=== PATIENT | male | born 1985 | race Two or more races ===

== ENCOUNTER 2019-01-02 22:18 | Emergency (ER) | payer BC, MEDICAID ==
[2019-01-03] MEDS ORDERED: LIDOCAINE 5% (700 MG) TRANSDERMAL ADH..PATCH TP ONE (01:19)
[2019-01-03] MEDS ORDERED: KETOROLAC TROMETHAMINE 60 MG/2 ML SDV IM ONE (01:19)
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
[2019-01-03 01:55] VITALS: BP 146/72
== END 2019-01-03 01:56 | disposition home or self-care (01) ==
LOC: ER 22:18
DX: M25.512 Pain in left shoulder (principal); G89.29 Other chronic pain; R25.2 Cramp and spasm
CPT/HCPCS: 99283; 96372; J1885

== ENCOUNTER 2019-02-26 12:20 | Emergency (ER) | payer SELFPAY ==
[2019-02-26] MEDS ORDERED: OXYCODONE-ACETAMINOPHEN 5-325 MG TABLET PO ONE (13:46)
--- NOTE | 2019-02-26 14:07 | RADIOLOGY REPORT (SQ) ---
EXAM DESCRIPTION: FOOT LEFT COMPLETE COMPLETED DATE/TIME: 02/26/2019 1:59 pm REASON FOR STUDY: fell yesterday, pain at calcaneous and up ankle COMPARISON: None. NUMBER OF VIEWS: Three views. TECHNIQUE: AP, lateral and oblique radiographic images acquired of the left foot. LIMITATIONS: None. FINDINGS: MINERALIZATION: Normal. BONES: No acute fracture or dislocation. No worrisome bone lesions. JOINTS: No effusions. SOFT TISSUES: No soft tissue swelling. No foreign body. OTHER: No other significant finding. IMPRESSION: NEGATIVE STUDY OF THE LEFT FOOT. NO RADIOGRAPHIC EVIDENCE OF ACUTE INJURY. TECHNICAL DOCUMENTATION: JOB ID: [id number] [employer]- All Rights Reserved Reading location - IP/workstation name: [email or web address]
--- NOTE | 2019-02-26 14:08 | RADIOLOGY REPORT (SQ) ---
EXAM DESCRIPTION: ANKLE LEFT COMPLETE COMPLETED DATE/TIME: 02/26/2019 1:59 pm REASON FOR STUDY: fell yesterday, pain at calcaneous and up ankle COMPARISON: None. NUMBER OF VIEWS: Three views. TECHNIQUE: AP, lateral, and oblique radiographic images acquired of the left ankle. LIMITATIONS: None. FINDINGS: MINERALIZATION: Normal. BONES: Several well corticated bone fragments overlie the distal fibula. This most likely is related to a old avulsion injury. There is no acute fracture or dislocation. JOINTS: No effusions. SOFT TISSUES: No soft tissue swelling. No foreign body. OTHER: No other significant finding. IMPRESSION: No acute findings. TECHNICAL DOCUMENTATION: JOB ID: [id number] [employer]- All Rights Reserved Reading location - IP/workstation name: [email or web address]
--- NOTE | 2019-02-26 15:16 | RADIOLOGY REPORT (SQ) ---
EXAM DESCRIPTION: OS CALCIS/HEEL LEFT COMPLETED DATE/TIME: 02/26/2019 3:04 pm REASON FOR STUDY: pain s/p fall COMPARISON: None. NUMBER OF VIEWS: Two views. TECHNIQUE: Plantar and lateral images acquired of the left calcaneous. LIMITATIONS: None. FINDINGS: MINERALIZATION: Normal. BONES: No acute fracture or dislocation. No worrisome bone lesions. JOINTS: No effusions. SOFT TISSUES: No soft tissue swelling. No foreign body. OTHER: No other significant finding. IMPRESSION: NEGATIVE STUDY OF THE LEFT CALCANEOUS. NO RADIOGRAPHIC EVIDENCE OF ACUTE INJURY. TECHNICAL DOCUMENTATION: JOB ID: [id number] [employer]- All Rights Reserved Reading location - IP/workstation name: [email or web address]
--- NOTE | 2019-02-26 15:55 | ER Document Report ---
HPI - HPI Time Seen by Provider: 02/26/19 13:19 Pain Level: 4 Notes: Patient is a 33-year-old male presenting with chief complaint of right foot pain and ankle pain. Patient reports that he was standing on a roof when his left leg fell through the roof however he did not fall through the roof. He states that his left leg did come down hard onto a wooden surface. Patient reports pain to the posterior calf over what he believes is the Achilles tendon. Patient is ambulatory on this extremity. - CONSTITUTIONAL Constitutional: DENIES: Fever, Chills - EENT EENT: DENIES: Sore Throat, Ear Pain, Eye problems - NEURO Neurology: DENIES: Headache, Weakness, Vision blurred, Dizzinesss / Vertigo - CARDIOVASCULAR Cardiovascular: DENIES: Chest pain - RESPIRATORY Respiratory: DENIES: Trouble Breathing, Coughing - GASTROINTESTINAL Gastrointestinal: DENIES: Abdominal Pain, Black / Bloody Stools - URINARY Urinary: DENIES: Dysuria, Urgency, Frequency - MUSCULOSKELETAL Musculoskeletal: REPORTS: Extremity pain - L foot/ankle Past Medical History - General Information source: Patient - Social History Smoking Status: Never Smoker Frequency of alcohol use: None Drug Abuse: None Family History: Reviewed & Not Pertinent Patient has suicidal ideation: No Patient has homicidal ideation: No - Medical History Medical History: Negative Renal/ Medical History: Denies: Hx Peritoneal Dialysis Surgical Hx: Negative - Immunizations Immunizations up to date: Yes Vertical Provider Document - CONSTITUTIONAL Notes: PHYSICAL EXAMINATION: GENERAL: Well-appearing, well-nourished and in no acute distress. HEAD: Atraumatic, normocephalic. EYES: Pupils equal round and reactive to light, extraocular movements intact, sclera anicteric, conjunctiva are normal. ENT: Nares patent, oropharynx clear without exudates. Moist mucous membranes. NECK: Normal range of motion, supple without lymphadenopathy LUNGS: Breath sounds clear to auscultation bilaterally and equal. No wheezes rales or rhonchi. HEART: Regular rate and rhythm without murmurs ABDOMEN: Soft, nontender, nondistended abdomen. No guarding, no rebound. No masses appreciated. Musculoskeletal: Normal range of motion, no pitting or edema. No cyanosis. negative asia test. Pain with flexion and extension of the foot. NEUROLOGICAL: Cranial nerves grossly intact. Normal speech, normal gait. Normal sensory, motor exams PSYCH: Normal mood, normal affect. SKIN: Warm, Dry, normal turgor, no rashes or lesions noted. - INFECTION CONTROL TRAVEL OUTSIDE OF THE [place] IN LAST 30 DAYS: No Course - Re-evaluation Re-evalutation: X-rays were obtained of the ankle, foot and calcaneus. These are all negative and show no acute fracture or dislocation. Attending physician, Dr. Holt did come to the bedside to evaluate the patient as well as I was concerned for a possible Achilles rupture or tear. Dr. Holt did the Simeon Ramos test which was negative. Patient will be placed in a short leg posterior splint to a position of comfort and referred to orthopedics as he does have significant pain to this area despite negative x-rays. Patient and family member at bedside and agreement with plan. - Vital Signs Vital signs: Temp Pulse Resp BP Pulse Ox 98.2 F 69 18 134/68 H 98 02/26/19 12:34 02/26/19 12:34 02/26/19 12:34 02/26/19 12:34 02/26/19 12:34 Procedures - Immobilization left leg Pre-Proc Neuro Vasc Exam: Normal Immobilizer type: Crutches, Short Leg Posterior Performed by: PCT Post-Proc Neuro Vasc Exam: Normal Alignment checked and good: Yes Discharge - Discharge Clinical Impression: Injury of ankle and foot Qualifiers: Encounter type: initial encounter Laterality: left Qualified Code(s): S99.912A - Unspecified injury of left ankle, initial encounter Condition: Stable Disposition: HOME, SELF-CARE Additional Instructions: The x-rays today were negative for any fracture or dislocation of the bones. This does not rule out any tendon or ligament injury. Please keep the splint in place until cleared by orthopedics. Please take ibuprofen 600 mg every 6 hours. Use the narcotic pain medication for severe pain only. Return to the emergency department with any new or worsening symptoms. Call orthopedics tomorrow to schedule follow-up. Prescriptions: Oxycodone HCl/Acetaminophen [Percocet 5-325 mg Tablet] 1 tab PO Q4H PRN #12 tablet PRN Reason: Referrals: ALLIE SEALS DO [ACTIVE STAFF] - Follow up as needed
[2019-02-26 16:05] VITALS: BP 118/67
== END 2019-02-26 16:09 | disposition home or self-care (01) ==
LOC: ER 12:20
DX: S99.912A Unspecified injury of left ankle, initial encounter (principal); M79.671 Pain in right foot; X58.XXXA Exposure to other specified factors, initial encounter
CPT/HCPCS: 99283

== ENCOUNTER 2019-11-26 23:18 | Emergency (ER) | payer SELFPAY ==
[2019-11-27 02:22] LABS: APPEARANCE,URINE SLIGHTLY-CLOUDY; BILIRUBIN,URINE NEGATIVE (NEGATIVE); COLOR,URINE AMBER; GLUCOSE, URINE NEGATIVE (NEGATIVE); KETONES,URINE TRACE mg/dL (NEGATIVE); LEUKOCYTE ESTERASE,URINE MODERATE (NEGATIVE); NITRITE,URINE NEGATIVE (NEGATIVE); PROTEIN,URINE 30 mg/dL (NEGATIVE); URINE SPECIFIC GRAVITY 1.035
[2019-11-27 02:25] LABS: A TYPE INFLUENZA AG NEGATIVE (NEGATIVE); B INFLUENZA AG NEGATIVE (NEGATIVE)
[2019-11-27] MEDS ORDERED: NORMAL SALINE 1000 ML 1,000 ML IV ONE (03:15)
[2019-11-27] MEDS ORDERED: KETOROLAC TROMETHAMINE INJ/PF 30 MG/1 ML SDV IV ONE (03:15)
[2019-11-27] MEDS ORDERED: ACETAMINOPHEN 325 MG TABLET PO ONE (03:15)
--- NOTE | 2019-11-27 03:28 | ER Document Report ---
ED General - General Chief Complaint: FEVERS Stated Complaint: FEVER,SHORTNESS OF BREATH,BODY ACHES Time Seen by Provider: 11/27/19 02:49 Notes: 34-year-old male presents emergency department complaining of a fever of 101 and some change at home for the past several days associated with sweats and chills, bilateral low back pain that is throbbing in nature and associated with shortness of breath as well as elevated blood pressure and elevated heart rate starting today. Patient complains of decreased oral intake secondary to simply not being hungry, muscle aches and muscle spasms all over his body. Denies nausea, vomiting, diarrhea. Admits to dysuria and feels like he cannot urinate as easily as he used to. Denies pain radiating to his testicles, denies penile discharge. TRAVEL OUTSIDE OF THE [place] IN LAST 30 DAYS: No - Related Data Allergies/Adverse Reactions: No Known Allergies Allergy (Verified 11/27/19 01:23) Past Medical History - General Information source: Patient - Social History Smoking Status: Current Every Day Smoker Chew tobacco use (# tins/day): No Frequency of alcohol use: None Drug Abuse: None Family History: Reviewed & Not Pertinent Patient has suicidal ideation: No Patient has homicidal ideation: No Renal/ Medical History: Denies: Hx Peritoneal Dialysis - Immunizations Immunizations up to date: Yes Review of Systems - Review of Systems Constitutional: See HPI, Chills, Diaphoresis, Fever, Malaise, Weakness EENT: No symptoms reported Cardiovascular: No symptoms reported Respiratory: See HPI, Short of breath Gastrointestinal: No symptoms reported Genitourinary: See HPI, Dysuria. denies: Discharge Male Genitourinary: No symptoms reported. denies: Testicular pain, Penile discharge Musculoskeletal: See HPI, Back pain, Muscle pain -: Yes All other systems reviewed and negative Physical Exam - Vital signs Vitals: Temp Pulse Resp BP Pulse Ox 99.5 F 96 18 174/89 H 98 11/26/19 23:35 11/26/19 23:35 11/26/19 23:35 11/26/19 23:35 11/26/19 23:35 Interpretation: Hypertensive - Notes Notes: GENERAL: Alert, interacts well. Looks tired. HEAD: Normocephalic, atraumatic EYES: Pupils equal, round and reactive to light, extraocular movements intact. ENT: Oral mucosa moist, tongue midline. NECK: Full range of motion, supple, trachea midline. LUNGS: Clear to auscultation bilaterally, no wheezes, rales or rhonchi, no respiratory distress. HEART: Regular rate and rhythm, no murmurs, gallops, rubs. ABDOMEN: Soft, nontender, nondistended, bowel sounds present in all 4 quadrants. BACK: Bilateral CVA tenderness to percussion. EXTREMITIES: Moves all 4 extremities spontaneously, no edema, radial and dorsalis pedis pulses 2/4 bilaterally. No cyanosis. NEUROLOGICAL: Alert and oriented x3, normal speech. PSYCH: Normal mood, normal affect. SKIN: Warm, Dry, normal turgor, no rashes or lesions noted. Course - Re-evaluation Re-evalutation: 11/27/19 03:28 Urinalysis shows trace ketones, small blood, moderate leukocyte esterase. Flu a and B swabs are negative. Given the back pain, infected urine and hematuria I am concerned for possible infected obstructing stone. Patient will be sent for CT scan. Urine is also sent for culture. Toradol and acetaminophen are given for pain, patient will be hydrated with normal saline, urine is been sent for culture. 11/27/19 04:03 No stone, no hydronephrosis, no perinephric abscess noted on CAT scan. Patient will be started on Bactrim, urine sent for culture. Discharged home. 11/27/19 05:56 CBC shows slight leukocytosis of 10.7, BMP unremarkable, discharged home. - Vital Signs Vital signs: Temp Pulse Resp BP Pulse Ox 99.2 F 102 H 20 127/83 H 99 11/27/19 04:43 11/27/19 03:04 11/27/19 03:04 11/27/19 03:04 11/27/19 03:04 - Laboratory Result Diagrams: 11/27/19 04:00 11/27/19 04:00 Laboratory results interpreted by me: 11/27/19 11/27/19 01:45 04:00 WBC 10.7 H Lymph % (Auto) 6.7 L Absolute Neuts (auto) 9.2 H Seg Neutrophils % 86.2 H Urine Protein 30 H Urine Ketones TRACE H Urine Blood SMALL H Urine Urobilinogen 2.0 H Ur Leukocyte Esterase MODERATE H Discharge - Discharge Clinical Impression: Pyelonephritis Condition: Stable Disposition: HOME, SELF-CARE Additional Instructions: Pyelonephritis Your evaluation shows evidence of pyelonephritis. This is an infection in the kidney. Typical symptoms are fever, pain in the flank, pain on urination, and frequent urination. Many cases of pyelonephritis can be treated at home. Hospital care may be necessary for patients who are very ill, or elderly or . Pyelonephritis is treated with antibiotics. Be sure to take all the medication as prescribed. Drink plenty of liquids (about three quarts per day). You may take acetaminophen for fever. You should feel significantly improved within two days. You should have a recheck of your urine in about one week to insure that the infection is gone. Return for a re-examination if your symptoms worsen in any way -- such as high fever, shaking chills, severe weakness or dizziness, severe pain, or inab ility to pass your urine. Prescriptions: Sulfamethoxazole/Trimethoprim [Bactrim Ds Tablet] 1 each PO BID #28 tablet Forms: Return to Work
--- NOTE | 2019-11-27 03:53 | RADIOLOGY REPORT (SQ) ---
EXAM DESCRIPTION: CT ABDOMEN PELVIS WITHOUT IV CONTRAST COMPLETED DATE/TME: 11/27/2019 02:50 CLINICAL HISTORY: B Flank pain, hematuria, fevers COMPARISON: None Available. TECHNIQUE: CT of the abdomen and pelvis without IV contrast. Evaluation of the solid organs and vasculature is suboptimal due to lack of IV contrast. FINDINGS: Lung Bases: The visualized lung bases are clear. Bones: No destructive bone lesions identified. Abdomen: Liver: The liver has normal size and density. Gallbladder: No calcified gallstones. Spleen, Pancreas, and Adrenal Glands: The spleen, pancreas, and adrenal glands are unremarkable. Kidneys: The kidneys have normal size without evidence of hydronephrosis. No obstructing ureteral calculi. Vasculature: The aorta and IVC have normal caliber and position. Stomach: The stomach and duodenum have normal course. Other: No free intraperitoneal air. No free fluid or lymphadenopathy. Pelvis: Bladder: Urinary bladder is unremarkable. Bowel: No dilated loops of large or small bowel. Scattered diverticula of the colon. Appendix: Normal appendix. Pelvis: Prostate is not enlarged. IMPRESSION: 1. No acute inflammatory or obstructive process identified. This exam was performed according to our departmental dose-optimization program, which includes automated exposure control, adjustment of the mA and/or kV according to patient size and/or use of iterative reconstruction technique.
[2019-11-27] MEDS ORDERED: CEFTRIAXONE 1 GM/D5W RTU 1 GM/50 ML RTUPB IV ONE (04:05)
[2019-11-27 04:44] LABS: ABSOLUTE EOSINOPHILS # (AUTO) 0.1 10^3/uL (0.0-0.6); ABSOLUTE LYMPHOCYTES (AUTO) 0.7 10^3/uL (0.5-4.7); ABSOLUTE MONOCYTES (AUTO) 0.6 10^3/uL (0.1-1.4); ABSOLUTE NEUT (AUTO) 9.2 10^3/uL (1.7-8.2); BASOPHILS % (AUTO) 0.3 % (0-2); EOSINOPHILS % (AUTO) 1.1 % (0-6); HEMOGLOBIN 15.7 g/dL (13.5-17.0); LYMPHOCYTES % (AUTO) 6.7 % (13-45); MEAN CORPUSCULAR HEMOGLOBIN 31.1 pg (27.0-33.4); MEAN CORPUSCULAR HGB CONC 34.9 g/dL (32.0-36.0); MEAN CORPUSCULAR VOLUME 89 fl (80-97); MONOCYTES % (AUTO) 5.7 % (3-13); PLATELET COUNT 286 10^3/uL (150-450); RED BLOOD COUNT 5.04 10^6/uL (4.35-5.55); RED CELL DISTRIBUTION WIDTH 13.9 % (11.5-14.0); SEGMENTED NEUTROPHILS % (AUTO) 86.2 % (42-78); TOTAL CELLS COUNTED % (AUTO) 100 %; WHITE BLOOD COUNT 10.7 10^3/uL (4.0-10.5)
[2019-11-27 04:58] LABS: ANION GAP 13 (5-19); BLOOD UREA NITROGEN 14 mg/dL (7-20); CALCIUM 8.7 mg/dL (8.4-10.2); CARBON DIOXIDE 24 mmol/L (22-30); CHLORIDE 101 mmol/L (98-107); GLUCOSE 101 mg/dL (75-110); POTASSIUM 4.1 mmol/L (3.6-5.0)
[2019-11-27] MEDS ORDERED: ONDANSETRON ODT 4 MG TAB (6 TAB/ER DISP) PO PRN (05:57)
[2019-11-27 06:31] VITALS: BP 106/65
== END 2019-11-27 06:36 | disposition home or self-care (01) ==
LOC: ER 23:18
DX: N12 Tubulo-interstitial nephritis, not specified as acute or chronic (principal); R50.9 Fever, unspecified; R06.02 Shortness of breath; M79.10 Myalgia, unspecified site; F17.200 Nicotine dependence, unspecified, uncomplicated
CPT/HCPCS: 99284; 96361; 96374; 36415; 87040; 87086; 85025; 80048; 81001; 87804; 74176; J1885; J7030; J0696